=== PATIENT | male | born 1980 | race American Indian/Alaskan Native ===

== ENCOUNTER 2022-05-23 10:48 | Emergency (ER) | payer MEDICARE, MEDICAID, SELFPAY ==
[2022-05-23] VITALS (14 sets, daily range): BP systolic 97–121; BP diastolic 67–77; PULSE 81–116; RESP 16; TEMP 36.5; O2SAT 97–100; BMI 25.7
[2022-05-23 11:20] LABS: Add Manual Diff / Slide Review NO; Basophils Absolute Auto 100 /uL (0-100); Eosinophils Absolute Auto 300 /uL (0-450); Eosinophils Percent Auto 3.3 % (2-4); Hematocrit 39.3 % (41-53); Hemoglobin 13.5 g/dL (13.5-17.5); Lymphocytes Absolute Auto 1400 /uL (1100-4500); Lymphocytes Percent Auto 15.2 % (25-40); Mean Corpuscular HGB Conc 34.4 % (30-36); Mean Corpuscular Hemoglobin 29.8 PG (26-34); Mean Corpuscular Volume 86.6 fL (80-100); Monocytes Absolute Auto 500 /uL (0-900); Monocytes Percent Auto 5.4 % (3-14); Neutrophils Absolute Auto 7100 /uL (1500-7000); Neutrophils Percent Auto 75.1 % (50-75); Red Blood Cell Count 4.54 X10^6/uL (4.5-5.9); Red Cell Distribution Width 14.9 % (11.6-14.8); White Blood Cell Count 9.4 X10^3/uL (4.5-11.0)
[2022-05-23 11:31] LABS: Alanine Aminotransferase 29 IU/L (<50); Albumin 4.4 g/dL (3.5-5.0); Alkaline Phosphatase 105 U/L (38-126); Aspartate Aminotransferase 21 IU/L (17-59); Bilirubin Total 0.3 mg/dL (0.2-1.3); Blood Urea Nitrogen 5 mg/dL (9-20); Calcium 8.5 mg/dL (8.4-10.2); Carbon Dioxide 30 mmol/L (22-32); Chloride 96 mmol/L (98-107); Estimated Glomerular Filt Rate > 60 mL/min (>60); Globulin 4.2 g/dL (1.7-4.1); Glucose 69 mg/dL (70-100); HEMOLYSIS < 15 (0-50); Lipase 620 U/L (23-300); Potassium 3.2 mmol/L (3.4-5.1); Sodium 139 mmol/L (137-145); Total Protein 8.6 g/dL (6.3-8.2)
[2022-05-23 11:32] LABS: Lactate (Lactic Acid) 2.5 mmol/L (0.7-2.1)
--- NOTE | 2022-05-23 11:33 | ED.ABDPAIN ---
HPI - Abdominal Pain General Chief Complaint: Abdominal Pain Stated Complaint: post op problems, lots of pain Time Seen by Provider: 05/23/22 11:31 Source: patient Mode of arrival: Ambulatory Limitations: no limitations History of Present Illness HPI narrative: This is a 41-year-old male with no reported medical issues who states he had laparoscopic cholecystectomy and had a surprise umbilical fistula that was repaired transient of April 2022 at [facility]. Patient states he had the surgery they did not expect to find the fistula but had it repaired while he was in the OR. States he was doing okay and once he was discharged pain started to slowly and gradually increase has become more and more painful throughout his abdomen. He states he had some fevers where he felt warm yesterday he did not check by thermometer. He states he is had vomiting in the last 2 days I states it was black in color no bright red blood. Patient states pain just continues to increase. He states he feels in his flanks but not worse when I palpate. Patient denies any dysuria, urgency, frequency or difficulty with urination. He states he has been constipated for the past 2 days has not passed any stool but has been passing gas. Patient states no black or bloody stools. 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 He denies allergies to medications. Denies tobacco, alcohol or illicit. He states that he lives in [facility]. Related Data Previous Rx's Medication Instructions Recorded ondansetron HCl 4 mg tablet 4 mg PO Q6H PRN nausea and 05/23/22 vomiting #5 tabs Allergies Allergy/AdvReac Type Severity Reaction Status Date / Time No Known Drug Allergies Allergy Verified 05/23/22 11:47 Review of Systems Review of Systems ROS Unobtainable: All systems reviewed & are unremarkable except as noted in HPI and below Exam Narrative Exam Narrative: GENERAL: Alert and oriented x three, male in moderate distress. HEENT: Head normocephalic, atraumatic, EOMI, pupils reactive, face symmetric, moist mucous membranes NECK: Supple, full range of motion CARDIOVASCULAR: Regular rate and rhythm without murmurs, rubs or gallops. RESPIRATORY: Breath sounds equal bilaterally, no wheezes rales or rhonchi. ABDOMEN: Soft, patient has generalized tenderness. He has small upper right-sided horizontal incision as well as a midline incision just at the umbilicus that is longer. Both are clean dry and intact without any obvious signs of drainage or dehiscence. There is some fullness at both incisions just at the incision itself which seems consistent with scar tissue. I do not appreciate any warmth, erythema or cellulitic changes. Normoactive bowel sounds all 4 quadrants. Positive for guarding, No rebound no rigidity, no mass : No CVA tenderness EXTREMITIES: Normal range of motion, no clubbing or edema. Neurovascularly intact NEUROLOGICAL: Cranial nerves II through XII grossly intact. Moving all extremities SKIN: Warm, dry, no petechiae, no rashes or lesions. 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 - [employer] Stat Discontinued Medications Sodium Chloride (Normal Saline 0.9%) 1,000 mls @ 1,000 mls/hr IV BOLUS ONE Stop: 05/23/22 12:37 Last Infusion: 05/23/22 13:25 Dose: 0 mls/hr Documented By: Admin: 05/23/22 11:48 Dose: 1,000 mls/hr Documented By: ROBBIN Ketorolac Tromethamine (Ketorolac 30 Mg/Ml Vial) 15 mg IV NOW ONE Stop: 05/23/22 12:27 Last Admin: 05/23/22 12:33 Dose: 15 mg Documented By: IGNACIO Morphine Sulfate (Morphine 4 Mg/Ml Inj) 4 mg IV NOW ONE Stop: 05/23/22 13:19 Last Admin: 05/23/22 13:20 Dose: Not Given Documented By: IGNACIO Ondansetron HCl (Ondansetron 4 Mg/2 Ml Inj) 4 mg IV NOW PRN PRN Reason: Nausea And Vomiting Vital Signs Vital signs: Vital Signs - 8 hr 05/23/22 11:00 05/23/22 10:55 05/23/22 10:56 Temperature 97.7 F Pulse Rate 116 H Respiratory Rate 16 Blood Pressure 121/77 121/77 Pulse Oximetry 97 100 Oxygen Delivery Method Room Air 05/23/22 10:56 05/23/22 11:00 05/23/22 11:30 Temperature Pulse Rate 103 H 100 H 94 H Respiratory Rate Blood Pressure Pulse Oximetry 100 100 99 Oxygen Delivery Method 05/23/22 11:47 05/23/22 11:47 05/23/22 12:00 Temperature Pulse Rate 96 H Respiratory Rate Blood Pressure 110/77 117/70 Pulse Oximetry 100 Oxygen Delivery Method 05/23/22 12:00 05/23/22 12:30 05/23/22 12:30 Temperature Pulse Rate 86 87 Respiratory Rate Blood Pressure 109/71 Pulse Oximetry 100 100 Oxygen Delivery Method 05/23/22 13:00 05/23/22 13:30 05/23/22 14:00 Temperature Pulse Rate 98 H 89 87 Respiratory Rate Blood Pressure Pulse Oximetry 100 100 100 Oxygen Delivery Method 05/23/22 14:02 05/23/22 14:02 05/23/22 14:30 Temperature Pulse Rate 89 Respiratory Rate 16 Blood Pressure 115/72 97/67 Pulse Oximetry 100 Oxygen Delivery Method Room Air 05/23/22 14:30 05/23/22 14:34 05/23/22 14:34 Temperature Pulse Rate 81 84 Respiratory Rate Blood Pressure 102/72 Pulse Oximetry 98 98 Oxygen Delivery Method 05/23/22 15:00 05/23/22 15:00 Temperature Pulse Rate 83 Respiratory Rate Blood Pressure 109/67 Pulse Oximetry 99 Oxygen Delivery Method MDM - Abdominal Pain Lab Data 05/23/22 11:10 05/23/22 11:10 Labs: Lab Results 05/23/22 05/23/22 05/23/22 Range/Units 11:10 11:10 11:10 WBC 9.4 (4.5-11.0) X10^3/uL RBC 4.54 (4.5-5.9) X10^6/uL Hgb 13.5 (13.5-17.5) g/dL Hct 39.3 L (41-53) % MCV 86.6 (80-100) fL MCH 29.8 (26-34) PG MCHC 34.4 (30-36) % RDW 14.9 H (11.6-14.8) % Plt Count 993 H* (150-400) X10^3/uL Neut % (Auto) 75.1 H (50-75) % Lymph % (Auto) 15.2 L (25-40) % [place] % (Auto) 5.4 (3-14) % Eos % (Auto) 3.3 (2-4) % Baso % (Auto) 1.0 (0-2) % Neut # (Auto) 7100 H (5874-7774) /uL Lymph # (Auto) 1400 (2245-1647) /uL [place] # (Auto) 500 (0-900) /uL Eos # (Auto) 300 (0-450) /uL Baso # (Auto) 100 (0-100) /uL RBC Morphology Normal morphology Sodium 139 (137-145) mmol/L Potassium 3.2 L (3.4-5.1) mmol/L Chloride 96 L (98-107) mmol/L Carbon Dioxide 30 (22-32) mmol/L BUN 5 L (9-20) mg/dL Creatinine 0.83 (0.66-1.25) mg/dL Estimated GFR > 60 (>60) mL/min BUN/Creatinine Ratio 6.0 (6-22) Glucose 69 L (70-100) mg/dL Lactate 2.5 H (0.7-2.1) mmol/L Calcium 8.5 (8.4-10.2) mg/dL Total Bilirubin 0.3 (0.2-1.3) mg/dL AST 21 (17-59) IU/L ALT 29 (<50) IU/L Alkaline Phosphatase 105 (38-126) U/L Total Protein 8.6 H (6.3-8.2) g/dL Albumin 4.4 (3.5-5.0) g/dL Globulin 4.2 H (1.7-4.1) g/dL Albumin/Globulin Ratio 1.0 (1.0-2.8) Lipase 620 H (23-300) U/L Procalcitonin (<0.5) ng/mL U Opiates 300ng/mL cut (Negative) Ur Oxycodone Screen (Negative) Urine Methadone Screen (Negative) Ur Barbiturates Screen (Negative) U Tricyclic Antidepress (Negative) Ur Phencyclidine Scrn (Negative) Ur Amphetamines Screen (Negative) U Methamphetamines Scrn (Negative) Ur MDMA Scrn (Ecstasy) (Negative) U Benzodiazepines Scrn (Negative) Urine Cocaine Screen (Negative) U Marijuana (THC) Screen (Negative) 05/23/22 05/23/22 05/23/22 Range/Units 11:40 11:44 13:40 WBC (4.5-11.0) X10^3/uL RBC (4.5-5.9) X10^6/uL Hgb (13.5-17.5) g/dL Hct (41-53) % MCV (80-100) fL MCH (26-34) PG MCHC (30-36) % RDW (11.6-14.8) % Plt Count (150-400) X10^3/uL Neut % (Auto) (50-75) % Lymph % (Auto) (25-40) % [place] % (Auto) (3-14) % Eos % (Auto) (2-4) % Baso % (Auto) (0-2) % Neut # (Auto) (3980-3783) /uL Lymph # (Auto) (5505-1880) /uL [place] # (Auto) (0-900) /uL Eos # (Auto) (0-450) /uL Baso # (Auto) (0-100) /uL RBC Morphology Sodium (137-145) mmol/L Potassium (3.4-5.1) mmol/L Chloride (98-107) mmol/L Carbon Dioxide (22-32) mmol/L BUN (9-20) mg/dL Creatinine (0.66-1.25) mg/dL Estimated GFR (>60) mL/min BUN/Creatinine Ratio (6-22) Glucose (70-100) mg/dL Lactate 1.5 (0.7-2.1) mmol/L Calcium (8.4-10.2) mg/dL Total Bilirubin (0.2-1.3) mg/dL AST (17-59) IU/L ALT (<50) IU/L Alkaline Phosphatase (38-126) U/L Total Protein (6.3-8.2) g/dL Albumin (3.5-5.0) g/dL Globulin (1.7-4.1) g/dL Albumin/Globulin Ratio (1.0-2.8) Lipase (23-300) U/L Procalcitonin 0.05 (<0.5) ng/mL U Opiates 300ng/mL cut Negative (Negative) Ur Oxycodone Screen Negative (Negative) Urine Methadone Screen Negative (Negative) Ur Barbiturates Screen Negative (Negative) U Tricyclic Antidepress Negative (Negative) Ur Phencyclidine Scrn Negative (Negative) Ur Amphetamines Screen Negative (Negative) U Methamphetamines Scrn Negative (Negative) Ur MDMA Scrn (Ecstasy) Negative (Negative) U Benzodiazepines Scrn Negative (Negative) Urine Cocaine Screen Negative (Negative) U Marijuana (THC) Screen Negative (Negative) Point of care testing: Point of Care Testing Glucose POC 124 Urine Dip Bedside Urine Glucose Negative Bedside Urine Bilirubin - Negative Bedside Urine Ketone - Negative Urine Specific [place] 1.010 Bedside Urine Occult Blood - Negative Bedside Urine pH 6.0 Bedside Urine Protein - Negative Bedside Urine Urobilinogen - Negative Bedside Urine Nitrite - Negative Bedside Urine Leukocytes - Negative Esterase Imaging Data CT scan - abdomen/pelvis: Radiologist's Impression: [place] [address] CT Scan Report Signed Patient: Noam Ceballos MR#: [id number] : 1980 Acct:[id number] Age/Sex: 41 / M Date of Service: 05/23/22 Loc: ED Accession Number: [id number] ?? Procedure: CT abdomen pelvis w con Ordering Provider: Tabitha Maravilla D.O. PROCEDURE:? CT ABDOMEN PELVIS W CON ? INDICATIONS:? abd pain, s/p lap asher umbilical fistula repair 05/08 ? TECHNIQUE:? After the administration of IV contrast, axial sections were acquired from the lung bases to the pubic symphysis.? Coronal and sagittal reformats were performed.? For radiation dose reduction, the following was used:? automated exposure control, adjustment of mA and/or kV according to patient size. ? COMPARISON:? None. ? FINDINGS:? Image quality:? Excellent.? ? Lung bases:? Unremarkable.? Small hiatal hernia and mild concentric thickening at the gastroesophageal junction. ? Heart:? No significant findings. ? ? ABDOMEN: Liver:? Unremarkable.? ? Gallbladder:? Surgically absent.? There is a mild soft tissue thickening and stranding in the gallbladder fossa.? ? Biliary ducts:? Unremarkable.? ? Pancreas:? Unremarkable.? ? Spleen:? Unremarkable.? ? Adrenal Glands:? Unremarkable.? ? Kidneys and Ureters:? Unremarkable.? ? ? Stomach and Bowel:? Stomach, small bowel loops, and colon are normal in caliber.? Mild colonic wall thickening involving the hepatic flexure suggesting mild colitis.? Surgical suture is noted in cecum. Peritoneum:? No abnormal intraperitoneal fluid.? No free air.? ? Ventral Wall: ? Periumbilical soft tissue stranding and small fluid collection.? Abdominal Nodes:? No retroperitoneal or mesenteric adenopathy by size criteria.? Vessels:? Aorta and inferior vena cava are normal in size.? ? PELVIS: Pelvic Organs:? Unremarkable.? ? Bladder:? Unremarkable.? ? Pelvic Nodes: No enlarged lymph nodes.? Miscellaneous: No inguinal hernias are seen. ? ? ? Bones:? Unremarkable.? IMPRESSION:? ? 1.? Cholecystectomy.? There is a mild soft tissue thickening and stranding in the gallbladder fossa, compatible with postsurgical change.? No drainable fluid fluid collections to suggest abscess. ? 2. Mild thickening of hepatic flexure of colon, suggesting mild colitis. ? 3. Peribronchial soft tissue stranding and small fluid collection most likely secondary to postsurgical change.? A small subcutaneous hematoma or developing abscess cannot be excluded. ? 4. Small hernia.? There is mild concentric thickening of GE junction.? Consider esophagram or EGD for follow-up.? Dictated by: Heriberto Ross M.D. on 05/23/2022 at 13:22 ? ? Approved by: Heriberto Ross M.D. on 05/23/2022 at 13:28?? [facility] Narrative Medical decision making narrative: This is a 41-year-old male no reported medical history had several very short term prescriptions from April and May for antipsychotic tight medications on pharmacy check. Patient is quite uncomfortable in his abdominal exam concern for possible developing infection. Patient is slightly tachycardic, afebrile, he is not hypotensive normal oxygenation. Labs show white count of 9, platelets are 993, hematocrit 39 with a leftward shift no bandemia. Patient's potassium 3 2 chloride 96, normal renal function, glucose was slightly low at 69 lactate was 2.5 bilirubins appropriate with normal ST ALT alk-phos, lipase is 620. Procalcitonin negative, blood cultures are obtained and pending. Urine tox was negative. Point of care urine was negative. Plan for really lactate, fluids CT abdomen pelvis to evaluate for infection, abscess versus pancreatitis or other cause. Patient notes he would like to avoid narcotics was given a dose of Toradol, Zofran. Patient had some mild improvement in pain but is still uncomfortable. Additional dose of narcotic pain medication given. Dr. Ruby, general surgery: Review patient's findings, imaging, examination from today. Discussed patient was slightly tachycardic when he arrived, afebrile, has high platelets but no elevated leukocytosis, procalcitonin is negative, lactate was elevated but has come down. Patient has got slightly elevated lipase but this could be partially post surgical from his recent cholecystectomy. At this time she feels does not require observation is not a surgical candidate at this time. Patient has tolerated orals in the department. He has not been able to fill his medications because his insurance does not go into effect until the . Did give him a printed script for Zofran, he met with our social welfare clerk we would have good Rx card to see if he might be able to fill them with that and resources. Patient has also been carrying his backpack and another bag which are quite heavy and likely contributing to his discomfort as well. Discharge Plan Departure Patient Disposition: Home Clinical Impression: Postoperative abdominal pain Activity Restrictions/Additional Instructions: Please follow-up with your general surgeon for recheck. You may take Tylenol up to a 1000 mg as needed for pain, you may take ibuprofen up to 600 mg every 6 hours. You may take Zofran 1 tablet every 6 hours as needed. Prescription printed. GoodRx prescription should be included to use with your prescriptions. Please return for fevers, worsening abdominal pain, persistent vomiting, if you are still not stooling or passing gas in the next 48 hours, increasing swelling of your abdomen, redness, drainage or other changes to her incision sites or other new or concerning changes. Prescriptions: New ondansetron HCl 4 mg tablet 4 mg PO Q6H PRN (Reason: nausea and vomiting) Qty: 5 0RF Stand Alone Forms: Patient Portal/API
[2022-05-23 11:41] LABS: Platelet Count 993 X10^3/uL (150-400)
[2022-05-23 11:42] LABS: RBC Morphology Normal Morphology
[2022-05-23] MEDS: SODIUM CHLORIDE 0.9% 1,000 ML 1000 ML IV (11:48)
[2022-05-23 12:10] LABS: Procalcitonin 0.05 ng/mL (<0.5)
--- NOTE | 2022-05-23 12:15 | DI.CT.S_ITS ---
PROCEDURE: CT ABDOMEN PELVIS W CON INDICATIONS: abd pain, s/p lap asher umbilical fistula repair 05/08 TECHNIQUE: After the administration of IV contrast, axial sections were acquired from the lung bases to the pubic symphysis. Coronal and sagittal reformats were performed. For radiation dose reduction, the following was used: automated exposure control, adjustment of mA and/or kV according to patient size. COMPARISON: None. FINDINGS: Image quality: Excellent. Lung bases: Unremarkable. Small hiatal hernia and mild concentric thickening at the gastroesophageal junction. Heart: No significant findings. ABDOMEN: Liver: Unremarkable. Gallbladder: Surgically absent. There is a mild soft tissue thickening and stranding in the gallbladder fossa. Biliary ducts: Unremarkable. Pancreas: Unremarkable. Spleen: Unremarkable. Adrenal Glands: Unremarkable. Kidneys and Ureters: Unremarkable. Stomach and Bowel: Stomach, small bowel loops, and colon are normal in caliber. Mild colonic wall thickening involving the hepatic flexure suggesting mild colitis. Surgical suture is noted in cecum. Peritoneum: No abnormal intraperitoneal fluid. No free air. Ventral Wall: Periumbilical soft tissue stranding and small fluid collection. Abdominal Nodes: No retroperitoneal or mesenteric adenopathy by size criteria. Vessels: Aorta and inferior vena cava are normal in size. PELVIS: Pelvic Organs: Unremarkable. Bladder: Unremarkable. Pelvic Nodes: No enlarged lymph nodes. Miscellaneous: No inguinal hernias are seen. Bones: Unremarkable. IMPRESSION: 1. Cholecystectomy. There is a mild soft tissue thickening and stranding in the gallbladder fossa, compatible with postsurgical change. No drainable fluid fluid collections to suggest abscess. 2. Mild thickening of hepatic flexure of colon, suggesting mild colitis. 3. Peribronchial soft tissue stranding and small fluid collection most likely secondary to postsurgical change. A small subcutaneous hematoma or developing abscess cannot be excluded. 4. Small hernia. There is mild concentric thickening of GE junction. Consider esophagram or EGD for follow-up. Dictated by: Heriberto Ross M.D. on 05/23/2022 at 13:22 Approved by: Heriberto Ross M.D. on 05/23/2022 at 13:28
[2022-05-23] MEDS: KETOROLAC 30 MG/ML VIAL 15 MG IV (12:33)
[2022-05-23 13:14] LABS: Reflexed Lactate in 2 Hours Y
[2022-05-23] MEDS: MORPHINE 2 MG/ML INJ 4 MG (13:20)
[2022-05-23 13:58] LABS: Lactate 2HR (Lactic Acid Rflx) 1.5 mmol/L (0.7-2.1)
[2022-05-23 15:07] LABS: UR Morphine/Opiate cutoff 300 Negative (Negative); Ur Creatinine Normal (Normal); Ur Specific Gravity Normal (Normal); Urine Amphetamines Negative (Negative); Urine Barbiturates Negative (Negative); Urine Benzodiazepines Negative (Negative); Urine Cocaine Negative (Negative); Urine MDMA Negative (Negative); Urine Methamphetamines Negative (Negative); Urine Phencyclidine Negative (Negative); Urine Tetrahydrocannabinol Negative (Negative); Urine pH Normal (Normal)
[2022-05-23 15:08] LABS: Urine Methadone Negative (Negative); Urine Oxycodone Negative (Negative); Urine Tricyclic Antidepressant Negative (Negative)
--- NOTE | 2022-05-23 15:26 | CM.SWNOTE ---
DIRECTOR EXECUTIVE COMMUNICATIONS Note DIRECTOR EXECUTIVE COMMUNICATIONS receives consult from ED provider to support patient with accessing his prescriptions. Patient is 41 y/o male who is homeless in [facility], [facility] Patient was recently discharged from [facility] in April 2022 for GI surgery. Patient presents to today due to concern for increase in abdominal pain. Patient presents with two heavy backpacks as well. DIRECTOR EXECUTIVE COMMUNICATIONS enters room to meet with patient. Patient presents as fatigued but A/Ox4. Patient endorses he has an appt at [facility] [employer] tomorrow at 2pm and states he was trying to get in contact with a Laura Jesús to connect him with a custodial house. Patient endorses he does not have this person's phone number but he knows her boss's number. DIRECTOR EXECUTIVE COMMUNICATIONS attempts to find contact information for patient and is unable to find it. DIRECTOR EXECUTIVE COMMUNICATIONS provides patient with contact information for [facility] Wellness program providers. Patient endorses that he plans to stay at the [facility], patient endorses that he is not sure how far of a walk it is and states he would benefit from a taxi ride. Patient to d/c upon medical clearance with taxi voucher to [facility]. Patient denies any further DIRECTOR EXECUTIVE COMMUNICATIONS needs or resources at this time. Plan: patient to d/c upon medical clearance with taxi, Patient to f/u with [facility] and [facility] resources to access director social welfare and inquire further about custodial house. JOZEF Vanegas
--- NOTE | 2022-05-23 15:35 | PC.NURSE ---
Pt AAOx3. Cab Voucher was provided to bring pt to [facility] for the night while he waits for a friend to help him check into a care home house. Pt with multiple RX's he has not filled from his stay at [facility] due to not having insurance coverage until 05/26. [facility] card given to help patient financially with RX's. Noted to have 2 heavy backpacks that he carries on his front and back. Advised that this is most likely exacerbating his post surgical pain and can be detrimental to his healing. Was advised to obtain a cart/wagon instead of carrying backpacks. Pt agreeable.
== END 2022-05-23 15:39 | disposition home or self-care (01) ==
PROVIDERS: Emergency Provider Emergency Medicine
DX: G89.18 Other acute postprocedural pain (principal); R10.9 Unspecified abdominal pain; R00.0 Tachycardia, unspecified
CPT/HCPCS: 36415; 74177; 80053; 80305; 81003; 82962; 83605; 83690; 84145; 85025; 87040; 96361; 96374; 96375; 99284; J1885; J2270

== ENCOUNTER 2022-06-16 16:31 | Emergency (ER) | payer MEDICARE, MEDICAID, SELFPAY ==
[2022-06-16] VITALS (20 sets, daily range): BP systolic 101–111; BP diastolic 60–75; PULSE 83–110; RESP 10–19; TEMP 36.6; O2SAT 96–100; BMI 26.6
[2022-06-16] MEDS: SODIUM CHLORIDE 0.9% 1,000 ML 250 ML IV (17:00)
[2022-06-16 17:10] LABS: Ethanol (ETOH) 29 mg/dL
[2022-06-16 17:11] LABS: Carbon Dioxide 18 mmol/L (22-32); Chloride 103 mmol/L (98-107); HEMOLYSIS < 15 (0-50); Potassium 3.9 mmol/L (3.4-5.1); Sodium 139 mmol/L (137-145)
[2022-06-16 17:12] LABS: BUN Creatinine Ratio 13.1 (6-22); Blood Urea Nitrogen 14 mg/dL (9-20); Calcium 8.2 mg/dL (8.4-10.2); Estimated Glomerular Filt Rate > 60 mL/min (>60); Glucose 202 mg/dL (70-100)
[2022-06-16 17:13] LABS: Add Manual Diff / Slide Review NO; Basophils Absolute Auto 100 /uL (0-100); Basophils Percent Auto 0.6 % (0-2); Eosinophils Absolute Auto 100 /uL (0-450); Eosinophils Percent Auto 0.8 % (2-4); Hematocrit 41.5 % (41-53); Hemoglobin 14.3 g/dL (13.5-17.5); Lymphocytes Absolute Auto 1700 /uL (1100-4500); Lymphocytes Percent Auto 15.7 % (25-40); Mean Corpuscular HGB Conc 34.5 % (30-36); Mean Corpuscular Hemoglobin 30.1 PG (26-34); Mean Corpuscular Volume 87.2 fL (80-100); Monocytes Absolute Auto 700 /uL (0-900); Monocytes Percent Auto 6.3 % (3-14); Neutrophils Absolute Auto 8200 /uL (1500-7000); Neutrophils Percent Auto 76.6 % (50-75); Platelet Count 463 X10^3/uL (150-400); Red Blood Cell Count 4.76 X10^6/uL (4.5-5.9); Red Cell Distribution Width 14.8 % (11.6-14.8); White Blood Cell Count 10.7 X10^3/uL (4.5-11.0)
[2022-06-16 17:17] LABS: Lithium 0.3 mmol/L (0.6-1.2)
--- NOTE | 2022-06-16 18:03 | DI.CT.S_ITS ---
PROCEDURE: CT HEAD/BRAIN WO CON INDICATIONS: altered TECHNIQUE: Noncontrast 4.5 mm thick angled axial sections acquired from the foramen magnum to the vertex, with coronal and sagittal reformats. For radiation dose reduction, the following was used: automated exposure control, adjustment of mA and/or kV according to patient size. COMPARISON: None. FINDINGS: Image quality: Excellent. CSF spaces: Basal cisterns are patent. No extra-axial fluid collections. Ventricles are normal in size and shape. Brain: No midline shift. No intracranial masses or hemorrhage. Avery-white matter interface is normal. Skull and face: Calvarium and visualized facial bones are intact, without suspicious lesions. Sinuses: Visualized sinuses and mastoids are clear. IMPRESSION: No acute intracranial abnormality. Dictated by: Lexa Long M.D. on 06/16/2022 at 18:38 Approved by: Lexa Long M.D. on 06/16/2022 at 18:39
--- NOTE | 2022-06-16 18:20 | ED_ITS ---
HPI - Overdose General Chief Complaint: Toxicology Problem Stated Complaint: Found unconscious, given narcan Time Seen by Provider: 06/16/22 18:02 Source: patient and EMS Mode of arrival: EMS History of Present Illness HPI Narrative: This is a 41-year-old with history of laparoscopic cholecystectomy in surprise umbilical fistula which was repaired in April of 2022, bipolar disorder on Seroquel and lithium. Patient states he took 2 tablets that he found on the floor at home today while cleaning he states that he thought that they were different medication than what they must have been. States he was not trying to harm himself but was just trying to get a buzz. He did have 2 whiskey drinks today as well. Patient states he had no goal oriented to harm himself. He was found in his car by his cousin and received Narcan. He was unconscious and this immediately improved his mentation and he had vomiting afterwards. Patient men tation has continued to improve. He states he had a little bit of a headache but that has resolved. Denies any active nausea, he denies chest pain or shortness of breath. He denies any diarrhea. He notes sometimes having some difficulty with bowel movements with baseball size stools or sometimes logs which are little bit larger. Patient states he is passing them but it is uncomfortable. Patient denies any black or bloody stools. He states fistula seems to be healing. He states he stopped his lithium for the past 2 days because he mixed up the pills in his daily pill container. Related Data Previous Rx's Medication Instructions Recorded ondansetron HCl 4 mg tablet 4 mg PO Q6H PRN nausea and 05/23/22 vomiting #5 tabs Allergies Allergy/AdvReac Type Severity Reaction Status Date / Time No Known Drug Allergies Allergy Verified 05/23/22 11:47 Review of Systems Review of Systems ROS Unobtainable: All systems reviewed & are unremarkable except as noted in HPI and below Patient History Social History Smoking Status: Current every day smoker Smoking Status: Current every day smoker alcohol intake frequency: a few times a week Substance Use Type: marijuana and methamphetamine Exam Narrative Exam Narrative: GENERAL: Alert and oriented x three, mild distress. HEENT: Head normocephalic, atraumatic, EOMI, pupils reactive, face symmetric, moist mucous membranes NECK: Supple, full range of motion CARDIOVASCULAR: Regular rate and rhythm without murmurs, rubs or gallops. RESPIRATORY: Breath sounds equal bilaterally, no wheezes rales or rhonchi. ABDOMEN: Soft, nontender. Normoactive bowel sounds all 4 quadrants. No guarding or rebound, rigidity, no mass, nondistended. Incision appears healed. : No CVA tenderness EXTREMITIES: Normal range of motion, no clubbing or edema. Neurovascularly intact NEUROLOGICAL: Cranial nerves II through XII grossly intact. Moving all extremities SKIN: Warm, dry, no petechiae, no rashes or lesions. PSYCH: No suicidal ideation, no homicidal ideation, patient states symptoms currently well controlled. Initial Vital Signs Initial Vital Signs: Vital Signs Pulse Rate 110 H 06/16/22 16:37 Respiratory Rate 15 06/16/22 16:37 Pulse Oximetry 100 06/16/22 16:37 Course Orders Ordered: Discontinued Medications Sodium Chloride (Normal Saline 0.9%) 1,000 mls @ 250 mls/hr IV NOW ONE Stop: 06/16/22 20:52 Last Infusion: 06/16/22 20:16 Dose: 0 mls/hr Documented By: Infusion: 06/16/22 18:32 Dose: 250 mls/hr Documented By: Infusion: 06/16/22 18:19 Dose: 0 mls/hr Documented By: Admin: 06/16/22 17:00 Dose: 250 mls/hr Documented By: DELFINO Naloxone HCl (Naloxone 4 Mg Nasal [place]) 4 mg MISC SEEINSTR ONE Stop: 06/16/22 19:57 Last Admin: 06/16/22 20:16 Dose: 4 mg Documented By: OAMIRA Ondansetron HCl (Ondansetron 4 Mg/2 Ml Inj) 4 mg IV NOW ONE Stop: 06/16/22 18:33 Last Admin: 06/16/22 18:50 Dose: 4 mg Documented By: DELFINO Vital Signs Vital signs: Vital Signs - 8 hr 06/16/22 16:45 06/16/22 16:37 06/16/22 16:41 Temperature 97.9 F Pulse Rate 105 H 110 H 109 H Respiratory Rate 19 15 17 Blood Pressure 111/71 Pulse Oximetry 97 100 97 Oxygen Delivery Method Room Air 06/16/22 16:41 06/16/22 17:00 06/16/22 17:00 Temperature Pulse Rate 105 H Respiratory Rate 17 Blood Pressure 111/71 108/67 Pulse Oximetry 98 Oxygen Delivery Method 06/16/22 17:15 06/16/22 17:30 06/16/22 17:30 Temperature Pulse Rate 100 H 102 H Respiratory Rate 19 Blood Pressure 107/70 Pulse Oximetry 96 98 Oxygen Delivery Method 06/16/22 17:45 06/16/22 18:00 06/16/22 18:00 Temperature Pulse Rate 90 93 H Respiratory Rate 12 11 L Blood Pressure 103/73 Pulse Oximetry 96 97 Oxygen Delivery Method 06/16/22 18:15 06/16/22 18:30 06/16/22 18:45 Temperature Pulse Rate 89 87 84 Respiratory Rate 16 14 16 Blood Pressure Pulse Oximetry 97 98 98 Oxygen Delivery Method 06/16/22 19:00 06/16/22 19:05 06/16/22 19:07 Temperature Pulse Rate 91 H 87 85 Respiratory Rate 15 15 Blood Pressure Pulse Oximetry 98 96 97 Oxygen Delivery Method 06/16/22 19:07 06/16/22 19:10 06/16/22 19:15 Temperature Pulse Rate 84 83 Respiratory Rate 14 19 Blood Pressure 101/60 Pulse Oximetry 97 96 Oxygen Delivery Method 06/16/22 19:20 Temperature Pulse Rate 90 Respiratory Rate 16 Blood Pressure Pulse Oximetry 98 Oxygen Delivery Method MDM - Overdose Lab Data 06/16/22 16:35 06/16/22 16:35 Labs: Lab Results 06/16/22 06/16/22 06/16/22 Range/Units 16:35 16:35 16:35 WBC 10.7 (4.5-11.0) X10^3/uL RBC 4.76 (4.5-5.9) X10^6/uL Hgb 14.3 (13.5-17.5) g/dL Hct 41.5 (41-53) % MCV 87.2 (80-100) fL MCH 30.1 (26-34) PG MCHC 34.5 (30-36) % RDW 14.8 (11.6-14.8) % Plt Count 463 H (150-400) X10^3/uL Neut % (Auto) 76.6 H (50-75) % Lymph % (Auto) 15.7 L (25-40) % [place] % (Auto) 6.3 (3-14) % Eos % (Auto) 0.8 L (2-4) % Baso % (Auto) 0.6 (0-2) % Neut # (Auto) 8200 H (9024-3781) /uL Lymph # (Auto) 1700 (2895-8196) /uL [place] # (Auto) 700 (0-900) /uL Eos # (Auto) 100 (0-450) /uL Baso # (Auto) 100 (0-100) /uL Sodium 139 (137-145) mmol/L Potassium 3.9 (3.4-5.1) mmol/L Chloride 103 (98-107) mmol/L Carbon Dioxide 18 L (22-32) mmol/L BUN 14 (9-20) mg/dL Creatinine 1.07 (0.66-1.25) mg/dL Estimated GFR > 60 (>60) mL/min BUN/Creatinine Ratio 13.1 (6-22) Glucose 202 H (70-100) mg/dL Calcium 8.2 L (8.4-10.2) mg/dL U Opiates 300ng/mL cut (Negative) Ur Oxycodone Screen (Negative) Urine Methadone Screen (Negative) Ur Barbiturates Screen (Negative) U Tricyclic Antidepress (Negative) Ur Phencyclidine Scrn (Negative) Ur Amphetamines Screen (Negative) U Methamphetamines Scrn (Negative) Ur MDMA Scrn (Ecstasy) (Negative) U Benzodiazepines Scrn (Negative) Luana (0.6-1.2) mmol/L Urine Cocaine Screen (Negative) U Marijuana (THC) Screen (Negative) Ethyl Alcohol 29 H ( - 10) mg/dL 06/16/22 06/16/22 Range/Units 16:35 19:44 WBC (4.5-11.0) X10^3/uL RBC (4.5-5.9) X10^6/uL Hgb (13.5-17.5) g/dL Hct (41-53) % MCV (80-100) fL MCH (26-34) PG MCHC (30-36) % RDW (11.6-14.8) % Plt Count (150-400) X10^3/uL Neut % (Auto) (50-75) % Lymph % (Auto) (25-40) % [place] % (Auto) (3-14) % Eos % (Auto) (2-4) % Baso % (Auto) (0-2) % Neut # (Auto) (3430-7203) /uL Lymph # (Auto) (0416-2781) /uL [place] # (Auto) (0-900) /uL Eos # (Auto) (0-450) /uL Baso # (Auto) (0-100) /uL Sodium (137-145) mmol/L Potassium (3.4-5.1) mmol/L Chloride (98-107) mmol/L Carbon Dioxide (22-32) mmol/L BUN (9-20) mg/dL Creatinine (0.66-1.25) mg/dL Estimated GFR (>60) mL/min BUN/Creatinine Ratio (6-22) Glucose (70-100) mg/dL Calcium (8.4-10.2) mg/dL U Opiates 300ng/mL cut Negative (Negative) Ur Oxycodone Screen Negative (Negative) Urine Methadone Screen Negative (Negative) Ur Barbiturates Screen Negative (Negative) U Tricyclic Antidepress Negative (Negative) Ur Phencyclidine Scrn Negative (Negative) Ur Amphetamines Screen Negative (Negative) U Methamphetamines Scrn Negative (Negative) Ur MDMA Scrn (Ecstasy) Negative (Negative) U Benzodiazepines Scrn Negative (Negative) Luana 0.3 L (0.6-1.2) mmol/L Urine Cocaine Screen Negative (Negative) U Marijuana (THC) Screen Negative (Negative) Ethyl Alcohol ( - 10) mg/dL Imaging Data CT scan - head: Radiologist's Impression: Close Head CT (Signed) Lexa Long - 06/16/22 Launch?[place] [id number] CT Scan Report Signed Patient: Noam Ceballos MR#: [id number] : 1980 Acct:[id number] Age/Sex: 41 / M Date of Service: 06/16/22 Loc: ED Accession Number: [id number] ?? Procedure: CT head/brain wo con Ordering Provider: Tabitha Maravilla D.O. PROCEDURE:? CT HEAD/BRAIN WO CON ? INDICATIONS:? altered ? TECHNIQUE:? Noncontrast 4.5 mm thick angled axial sections acquired from the foramen magnum to the vertex, with coronal and sagittal reformats.? For radiation dose reduction, the following was used:? automated exposure control, adjustment of mA and/or kV according to patient size.? ? COMPARISON:? None. ? FINDINGS:? Image quality:? Excellent.? ? CSF spaces:? Basal cisterns are patent.? No extra-axial fluid collections.? Ventricles are normal in size and shape.? ? Brain:? No midline shift.? No intracranial masses or hemorrhage.? Avery-white matter interface is normal.? ? Skull and face:? Calvarium and visualized facial bones are intact, without suspicious lesions.? ? Sinuses:? Visualized sinuses and mastoids are clear.? ? IMPRESSION:? No acute intracranial abnormality. ? ? Dictated by: Lexa Long M.D. on 06/16/2022 at 18:38 ? ? Approved by: Lexa Long M.D. on 06/16/2022 at 18:39?? ECG Data Attestation: I personally reviewed and interpreted this ECG as follows: Prior ECG tracings: not available for review Interpretation: Sinus rhythm rate of 100 UT 136 QRS of 96 and QTC of 477. Q-wave in lead. No ST elevation or depression noted. MDM Narrative Medical decision making narrative: This is a 41-year-old male with appears to be accidental overdose. Patient's labs show platelets slightly elevated 463, CO2 is 18, renal function, CBC and BMP did not show other major changes. ETOH was 29, lithium level is low but patient notes he is not taking his medications. Patient received fluids, Zofran mentation continued to improve. Patient on recheck notes that he has had some thoughts of harming himself, he states he has not have any intent at this time. He contracts for safety he states that he would reach out his cousin who is the person who found him today. He states he has not appointment at 7:30 a.m. in the morning for follow-up. He is going to AA meetings and also has care [facility] He states he does have support with his cousin and states triggers for today was that he met with his social work who noted that he may not have as much access to his kids for the time being. We discussed if he would like to stay and have inpatient ps ychiatric care. He does not he contracts for safety he states that he does not wish to harm or kill himself at this time and seems appropriate for discharge after discussion. He states he is going to stay with his cousin jaylen who will also be his ride. He would like the Narcan prescription. Naloxone at Discharge Meets criteria for naloxone at discharge?: Yes Discharge Plan Departure Patient Disposition: Home Clinical Impression: Accidental overdose Instructions: Naloxone for Opiate Overdose - [facility] Activity Restrictions/Additional Instructions: Please follow-up at your appointment at 7:30 a.m. tomorrow morning. A prepack of Narcan was provided. I would recommend adding your stool softener back this should not cause any issues with ulcers and may help with your constipation. If you're feeling suicidal or having suicidal thoughts, contact the suicide hotline: . Please return for new or worsening symptoms if you feel unsafe at any time, have thoughts of harming yourself or others, persistent vomiting, passing out, difficulty with breathing or other new or concerning changes. Prescriptions: No Action ondansetron HCl 4 mg tablet 4 mg PO Q6H PRN (Reason: nausea and vomiting) Qty: 5 0RF Stand Alone Forms: Patient Portal/API
[2022-06-16] MEDS: ONDANSETRON 4 MG/2 ML INJ IV (18:50)
[2022-06-16] MEDS: NALOXONE 4 MG NASAL SPRAY MISC (20:16)
[2022-06-16 20:49] LABS: UR Morphine/Opiate cutoff 300 Negative (Negative); Ur Creatinine Normal (Normal); Ur Specific Gravity Normal (Normal); Urine Amphetamines Negative (Negative); Urine Barbiturates Negative (Negative); Urine Benzodiazepines Negative (Negative); Urine Cocaine Negative (Negative); Urine MDMA Negative (Negative); Urine Methadone Negative (Negative); Urine Methamphetamines Negative (Negative); Urine Oxycodone Negative (Negative); Urine Phencyclidine Negative (Negative); Urine Tetrahydrocannabinol Negative (Negative); Urine Tricyclic Antidepressant Negative (Negative); Urine pH Normal (Normal)
== END 2022-06-16 20:27 | disposition home or self-care (01) ==
PROVIDERS: Emergency Medicine; Emergency Provider Emergency Medicine
DX: R41.82 Altered mental status, unspecified (principal); T50.901A Poisoning by unspecified drugs, medicaments and biological substances, accidental (unintentional), initial encounter; R07.9 Chest pain, unspecified
CPT/HCPCS: 36415; 70450; 80048; 80178; 80305; 80320; 85025; 93005; 96361; 96374; 99284; A9270; J2405